=== PATIENT | male | born 1965 | race Caucasian/White ===

== ENCOUNTER 2022-10-07 15:54 | Outpatient (CLI) | payer BC, SELFPAY ==
--- NOTE | 2022-10-07 16:00 | CRLHL7_ITS ---
For Patients: As a result of the Century Cures Act, medical imaging exams and procedure reports are released immediately into your electronic medical record. You may view this report before your referring provider. If you have questions, please contact your health care provider. INDICATION: Scalp mass TECHNIQUE: Non-contrast CT of the head is submitted. No comparisons. FINDINGS: The ventricles, sulci and gyri are of normal size, shape and contour. Midline structures are centrally located. No convincing evidence of intra- or extra-axial fluid collections. In the region of the occipital protuberance is an 8 millimeter bony posterior protuberance. There is soft overlying soft tissue irregularity and may represent chronic subcutaneous changes. The osseous irregularity appears to represent a benign prominence of the occipital protuberance which can be a variant of normal. IMPRESSION: 1. No radiographic evidence of acute intracranial abnormalities. 2. Findings appear most compatible with a benign prominence of the occipital condyle with associated subcutaneous irregularity that may represent chronic localized inflammatory change. Please note that all CT scans at this facility use dose modulation, iterative reconstruction, and/or weight-based dosing when appropriate to reduce radiation dose to as low as reasonably achievable. Dictated by Rodriguez Godinez MD @ 10/07/2022 6:18:02 PM (Electronically Signed)
== END 2022-10-07 15:55 | disposition home or self-care (01) ==
PROVIDERS: PCP Family Medicine; Visit Provider Surgery
DX: R22.0 Localized swelling, mass and lump, head (principal)
CPT/HCPCS: 70450